=== PATIENT | female | born 1975 | race African-American/Black ===

== ENCOUNTER → 2016-10-26 | Outpatient (CLI) | payer OTHER ==
[~2016-10-26] MED LIST: CALNTAB; ZOFR4TAB3 SL
== END ==
LOC: HPND 10:17
PROVIDERS: ATTEND Obstetrics & Gynecology
DX: O09.522 Supervision of elderly multigravida, second trimester (principal)
CPT/HCPCS: 76811

== ENCOUNTER → 2016-12-30 | Outpatient (CLI) | payer OTHER | LOC: HPND 08:22 | PROVIDERS: ATTEND Obstetrics & Gynecology | DX: O24.410 Gestational diabetes mellitus in pregnancy, diet controlled (principal); O09.523 Supervision of elderly multigravida, third trimester | CPT/HCPCS: 76816 ==

== ENCOUNTER 2017-03-16 19:53 | Emergency (ER) | payer OTHER ==
[~2017-03-16] VITALS: Ht 172.7 cm; Wt 77.0 kg
[2017-03-16 19:58] VITALS: BP 129/75; PULSE 113; RESP 16; TEMP 100.5; O2SAT 97
[2017-03-16] MEDS ORDERED: ACETAMINOPHEN 325 MG TAB PO ONE (21:45)
[2017-03-16] MEDS ORDERED: SODIUM CHLOR 0.9% 1000 ML INJ 1,000 ML IV ONE (21:45)
--- NOTE | 2017-03-16 22:06 | PD ---
HPI . breast pain / leg tingling / "not feeling well" Chief Complaint: Fever Time Seen by Provider: 21:19 Travel History International Travel<30 days: No Contact w/Intl Traveler<30days: No Traveled to known affect area: No History of Present Illness HPI 41 year old female that is approximately 3 weeks post (c -section) presents to the ED complaining of "just not feeling well". She reports right sided breast pain that started this afternoon and some fevers. She had some chills and felt really cold. Also reports a headache that she describes as "nasally" that started earlier today. It is a 10/10 when she sits up. No vomiting or photophobia. She had some nausea earlier today. She also reports bilateral lower extremity tingling in her feet. She reports having right sided hand tingling since her . She denies any shortness of breath, cough, chest pain, dysuria, frequency, vaginal bleeding or discharge. She admits to some decreased appetite and thinks she may be dehydrated. PFSH Past Medical History Diabetes: Yes (gestational) Patient Takes Glucophage: No Diminished Hearing: No Immunizations Current: Yes ?: Not Past Surgical History Abdominal Surgery: Yes Section: Yes (x3) Social History Alcohol Use: No Tobacco Use: No Substance Use: No Allergies-Medications (Allergen,Severity, Reaction): Coded Allergies: No Known Allergies (Unverified , 03/16/17) Reported Meds & Prescriptions Reported Meds & Active Scripts Active No Active Prescriptions or Reported Medications Review of Systems General / Constitutional: Positive: Fever, Chills HENT: Positive: Headaches Cardiovascular: No: Chest Pain or Discomfort Respiratory: No: Cough, Shortness of Breath, Wheezing Gastrointestinal: Positive: Nausea, No: Vomiting, Diarrhea, Constipation Genitourinary: No: Frequency, Dysuria, Vaginal Bleeding Skin: Positive Breast Tenderness (right side), No Rash Neurologic: Positive: Paresthesia (feet) Physical Exam Narrative GENERAL: Awake and alert female appearing stated age in no acute respiratory distress. SKIN: Focused skin assessment warm/dry. HEAD: Atraumatic. Normocephalic. EYES: Pupils equal and round. No scleral icterus. No injection or drainage. ENT: No nasal bleeding or discharge. Mucous membranes pink and moist. NECK: Trachea midline. No JVD. Neck supple. No lymphadenopathy. CARDIOVASCULAR: Regular rate and rhythm. No murmur appreciated. RESPIRATORY: No accessory muscle use. Clear to auscultation. Breath sounds equal bilaterally. No wheezes, crackles, rales or rhonchi. GASTROINTESTINAL: Abdomen soft, non-tender, nondistended. Closed scar visible, no active drainage or bleeding. Hepatic and splenic margins not palpable. MUSCULOSKELETAL: No obvious deformities. No clubbing. No cyanosis. No edema. Right lateral breast tender around the 8 o'clock position. NEUROLOGICAL: Awake and alert. No obvious cranial nerve deficits. Motor grossly within normal limits. Normal speech. Decreased lead auditor strength on the right side. PSYCHIATRIC: Appropriate mood and affect; insight and judgment normal. Data Data Last Documented VS Vital Signs Date Time Temp Pulse Resp B/P Pulse Ox O2 Delivery O2 Flow Rate FiO2 03/16/17 19:58 100.5 113 16 129/75 97 Room Air Orders Complete Blood Count With Diff (03/16/17 21:44) Comprehensive Metabolic Panel (03/16/17 21:44) Urinalysis - C+S If Indicated (03/16/17 21:44) Sodium Chlor 0.9% 1000 Ml Inj (Ns 1000 M (03/16/17 21:45) Acetaminophen (Tylenol) (03/16/17 21:45) Labs Laboratory Tests Test 03/16/17 21:47 White Blood Count 11.0 TH/MM3 Red Blood Count 4.11 MIL/MM3 Hemoglobin 11.7 GM/DL Hematocrit 34.5 % Mean Corpuscular Volume 83.8 FL Mean Corpuscular Hemoglobin 28.4 PG Mean Corpuscular Hemoglobin 33.9 % Concent Red Cell Distribution Width 14.2 % Platelet Count 391 TH/MM3 Mean Platelet Volume 8.6 FL Neutrophils (%) (Auto) 70.7 % Lymphocytes (%) (Auto) 19.2 % Monocytes (%) (Auto) 5.1 % Eosinophils (%) (Auto) 4.4 % Basophils (%) (Auto) 0.6 % Neutrophils # (Auto) 7.8 TH/MM3 Lymphocytes # (Auto) 2.1 TH/MM3 Monocytes # (Auto) 0.6 TH/MM3 Eosinophils # (Auto) 0.5 TH/MM3 Basophils # (Auto) 0.1 TH/MM3 CBC Comment DIFF FINAL Differential Comment Urine Color YELLOW Urine Turbidity CLEAR Urine pH 5.5 Urine Specific [place] 1.019 Urine Protein NEG mg/dL Urine Glucose (UA) NEG mg/dL Urine Ketones NEG mg/dL Urine Occult Blood SMALL Urine Nitrite NEG Urine Bilirubin NEG Urine Urobilinogen LESS THAN 2.0 MG/DL Urine Leukocyte Esterase TRACE Urine RBC 1 /hpf Urine WBC 2 /hpf Urine Squamous Epithelial 2 /hpf Cells Microscopic Urinalysis Comment CULT NOT INDICATED Sodium Level 138 MEQ/L Potassium Level 3.9 MEQ/L Chloride Level 107 MEQ/L Carbon Dioxide Level 21.3 MEQ/L Anion Gap 10 MEQ/L Blood Urea Nitrogen 16 MG/DL Creatinine 1.01 MG/DL Estimat Glomerular Filtration 74 ML/MIN Rate Random Glucose 75 MG/DL Calcium Level 8.8 MG/DL Total Bilirubin 0.5 MG/DL Aspartate Amino Transf 23 U/L (AST/SGOT) Alanine Aminotransferase 28 U/L (ALT/SGPT) Alkaline Phosphatase 137 U/L Total Protein 8.3 GM/DL Albumin 3.9 GM/DL MDM Medical Decision Making Medical Screen Exam Complete: Yes Emergency Medical Condition: Yes Interpretation(s) Laboratory Tests Test 03/16/17 21:47 White Blood Count 11.0 TH/MM3 Red Blood Count 4.11 MIL/MM3 Hemoglobin 11.7 GM/DL Hematocrit 34.5 % Mean Corpuscular Volume 83.8 FL Mean Corpuscular Hemoglobin 28.4 PG Mean Corpuscular Hemoglobin 33.9 % Concent Red Cell Distribution Width 14.2 % Platelet Count 391 TH/MM3 Mean Platelet Volume 8.6 FL Neutrophils (%) (Auto) 70.7 % Lymphocytes (%) (Auto) 19.2 % Monocytes (%) (Auto) 5.1 % Eosinophils (%) (Auto) 4.4 % Basophils (%) (Auto) 0.6 % Neutrophils # (Auto) 7.8 TH/MM3 Lymphocytes # (Auto) 2.1 TH/MM3 Monocytes # (Auto) 0.6 TH/MM3 Eosinophils # (Auto) 0.5 TH/MM3 Basophils # (Auto) 0.1 TH/MM3 CBC Comment DIFF FINAL Differential Comment Urine Color YELLOW Urine Turbidity CLEAR Urine pH 5.5 Urine Specific [place] 1.019 Urine Protein NEG mg/dL Urine Glucose (UA) NEG mg/dL Urine Ketones NEG mg/dL Urine Occult Blood SMALL Urine Nitrite NEG Urine Bilirubin NEG Urine Urobilinogen LESS THAN 2.0 MG/DL Urine Leukocyte Esterase TRACE Urine RBC 1 /hpf Urine WBC 2 /hpf Urine Squamous Epithelial 2 /hpf Cells Microscopic Urinalysis Comment CULT NOT INDICATED Sodium Level 138 MEQ/L Potassium Level 3.9 MEQ/L Chloride Level 107 MEQ/L Carbon Dioxide Level 21.3 MEQ/L Anion Gap 10 MEQ/L Blood Urea Nitrogen 16 MG/DL Creatinine 1.01 MG/DL Estimat Glomerular Filtration 74 ML/MIN Rate Random Glucose 75 MG/DL Calcium Level 8.8 MG/DL Total Bilirubin 0.5 MG/DL Aspartate Amino Transf 23 U/L (AST/SGOT) Alanine Aminotransferase 28 U/L (ALT/SGPT) Alkaline Phosphatase 137 U/L Total Protein 8.3 GM/DL Albumin 3.9 GM/DL Differential Diagnosis Differentials include dehydration, UTI, mastitis, endometritis, viral illness, migraine, neuropathy. Narrative Course IV was established, labs are drawn and sent, and the patient was placed on cardiac telemetry monitoring and continuous pulse oximetry monitoring. Patient was given IV fluids for possible dehydration and acetaminophen. Patient is breast feeding and likely has mastitis on the right side. She will be treated with Keflex. The patient's labs are unremarkable. Patient will be treated with Keflex for mastitis, is advised to apply warm compresses, she is also advised to follow-up with her primary physician and communications manager. Return if symptoms worsen or progress. Diagnosis Primary Impression: Mastitis Patient Instructions: General Instructions Additional Instructions: Medications as directed. Apply warm compresses to the right breast. Follow-up with your communications manager and primary physician. Please provide the patient a copy of her labs at discharge. Return if symptoms worsen or progress. Med/Other Pt SpecificInfo: Prescription(s) given Scripts Cephalexin (Keflex)500 Mg [id number] Mg PO Q8H 10 Days Ref 0 Prov:Bonifacio Blanc MD 03/16/17 Disposition: 01 DISCHARGE HOME Condition: Stable Bonifacio Blanc MD Mar 16, 2017 22:06
[2017-03-16 22:28] LABS: AUTOMATED NEUTROPHIL # 7.8 TH/MM3 (1.8-7.7); BASOPHIL # 0.1 TH/MM3 (0-0.2); BASOPHIL % 0.6 % (0.0-2.0); EOSINOPHIL # 0.5 TH/MM3 (0-0.4); EOSINOPHIL % 4.4 % (0.0-4.0); HEMATOCRIT 34.5 % (35.0-46.0); HEMO FLAGS DIFF FINAL; LYMPH % 19.2 % (9.0-44.0); LYMPHOCYTE # 2.1 TH/MM3 (1.0-4.8); MEAN CELL VOLUME 83.8 FL (80.0-100.0); MEAN CORPUSCULAR HEMOGLOBIN 28.4 PG (27.0-34.0); MEAN CORPUSCULAR HGB CONC 33.9 % (32.0-36.0); MONO % 5.1 % (0.0-8.0); NEUT % 70.7 % (16.0-70.0); PLATELET COUNT 391 TH/MM3 (150-450); RED BLOOD COUNT 4.11 MIL/MM3 (4.00-5.30); RED CELL DISTRIBUTION WIDTH 14.2 % (11.6-17.2)
[2017-03-16 22:29] LABS: BLOOD, URINE SMALL (NEG); GLUCOSE,URINE NEG (NEG); KETONE, URINE NEG (NEG); NITRITE,URINE NEG (NEG); PH, URINE 5.5 (5.0-8.5); SQUAMOUS EPITHELIAL CELL URINE 2 /hpf (0-5); URINE COLOR YELLOW (YELLW/STRAW)
[2017-03-16 22:30] LABS: COMMENT (UR) CULT NOT INDICATED; CULTURE IF INDICATED CULT NOT INDICATED
[2017-03-16 22:41] LABS: ALT (GPT) 28 U/L (10-53); ANION GAP 10 MEQ/L (5-15); AST (GOT) 23 U/L (15-37); BICARBONATE 21.3 MEQ/L (21.0-32.0); BLOOD UREA NITROGEN 16 MG/DL (7-18); CHLORIDE 107 MEQ/L (98-107); GLOMERULAR FILTRATION RATE 74 ML/MIN (>89); POTASSIUM 3.9 MEQ/L (3.5-5.1); SODIUM (NA) 138 MEQ/L (136-145)
[2017-03-16 22:44] LABS: ALKALINE PHOSPHATASE 137 U/L (45-117); TOTAL BILIRUBIN ADULT 0.5 MG/DL (0.2-1.0)
[2017-03-16] MEDS ORDERED: CEPH-460 PO (23:00)
== END 2017-03-16 23:33 | disposition home or self-care (01) ==
LOC: NEPE 19:53
DX: O91.22 Nonpurulent mastitis associated with the puerperium (principal); R51 Headache; R11.0 Nausea; R50.9 Fever, unspecified; O24.439 Gestational diabetes mellitus in the puerperium, unspecified control
CPT/HCPCS: 80053; 81001; 85025; 96360; 99284; J7030